=== PATIENT | female | born 1985 | race Hispanic/Latino ===

== ENCOUNTER 2024-10-05 23:17 | Emergency (ER) | payer OTHER ==
[~2024-10-05] VITALS: Ht 154.9 cm; Wt 105.7 kg
[2024-10-05 23:50] LABS: BASOPHILS # (AUTO) 0.01 K/uL (0.00-0.20); BASOPHILS % (AUTO) 0.3 % (0.0-5.0); EOSINOPHILS # (AUTO) 0.14 K/uL (0.00-0.70); EOSINOPHILS % (AUTO) 4.2 % (0.0-8.0); HEMATOCRIT 36.6 % (36-48); IMMATURE GRANULOCYTE ABSOLUTE 0.01 K/uL (0-1); LYMPHOCYTES # (AUTO) 1.1 K/uL (1.0-4.8); LYMPHOCYTES % (AUTO) 32.6 % (21.0-51.0); MEAN CORPUSCULAR HEMOGLOBIN 27.4 pg (27.0-33.0); MEAN CORPUSCULAR HGB CONC 33.9 g/dL (32.0-36.0); MONOCYTES # (AUTO) 0.4 K/uL (0.1-1.0); MONOCYTES % (AUTO) 11.9 % (3.0-13.0); NEUTROPHILS # (AUTO) 1.7 K/uL (1.8-7.7); NEUTROPHILS % (AUTO) 50.7 % (40.0-77.0); PLATELET COUNT (AUTO) 182 K/uL (130-400); RED BLOOD CELL COUNT(AUTO) 4.52 MIL/uL (4.00-5.50); RED CELL DISTRIBUTION WIDTH 11.8 % (11.0-15.5); WHITE BLOOD COUNT (AUTO) 3.4 K/uL (4.8-10.8)
[2024-10-05] MEDS: PANTOPrazole 40 MG/VIAL IVP ONE (23:55)
[2024-10-06 00:06] LABS: CREATININE 0.8 mg/dL (0.5-1.0); INR <= 0.93 (0.85-1.15); POTASSIUM 3.8 mmol/L (3.5-5.1); PROTHROMBIN TIME 10.3 SEC (9.6-11.6)
--- NOTE | 2024-10-06 00:07 | ERN ---
General Chief Complaint: Chest Pain Stated Complaint: CHEST PAIN, ELEVATED HEART RATE, SHORTNESS OF LESLIE Time Seen by MD: 23:23 Source: patient History of Present Illness Initial Comments Patient is a 38-year-old female coming in with epigastric and chest pressure. Patient states that the chest pressure discomfort began yesterday. She states that she has been concerned decided to come in to be evaluated. States it is not pain is more pressure-like. Allergies: Coded Allergies: No Known Drug Allergies (Unverified Allergy, 11/16/13) Past Medical History Past Medical History: Diabetes-Type II, Hypertension Past Surgical History: Appendectomy, Cholecystectomy ROS Dictation CONSTITUTIONAL: No chills, no fever, no weakness, no diaphoresis, no malaise. HEAD/FACE: No signs of trauma. EENT: No eye pain, no blurred vision, no tearing, no double vision, no ear pain, no ear discharge, no nose pain, no nasal congestion, no throat pain, no throat swelling, no mouth pain. RESPIRATORY: No cough, no orthopnea, no SOB, no stridor, no wheezing. CARDIOVASCULAR: chest pain, no edema, no palpitations, no syncope. GASTROINTESTINAL/ABDOMINAL: No abdominal pain, no constipation, no diarrhea, no nausea, no vomiting. GENITOURINARY: No abnormal discharge, no dysuria, no frequent urination, no hematuria. No complaints of pain in the genitals. MUSCULOSKELETAL: No back pain, no gout, no joint pain, no joint swelling, no muscle pain, no muscle stiffness, no neck pain. INTEGUMENTARY: No change in color, no change in hair/nails, no dryness, no lesion, no lumps, no rash. NEUROLOGICAL/PSYCH: No anxiety, not depressed, no emotional problem, no headache, no numbness, no pre-existing deficit, no history of seizures, no tremors, no weakness. HEMATOLOGIC/LYMPHATIC: Not anemic, no history of blood clots, no apparent bleeding, no bruising, glands not swollen. All Systems Negative, Except as Noted. Physical Exam Physical Exam Dictation VITAL SIGNS: Reviewed. GENERAL APPEARANCE: Alert, oriented x3, no acute distress, obese. HEAD AND FACE: Non-traumatic. EYES: PERRL, pink conjunctivas, eyelid no trauma, anterior chamber clear. EARS: Pinnas intact and no signs of trauma or erythema. Ear canals clear and no discharge. TMs no erythema. NOSE: No discharge, no bleeding. OROPHARYNX: Mouth normal, teeth no caries, tongue pink. Pharynx clear, no erythema. Tonsils no exudates, no abscesses noted. Mucous membrane moist. NECK: Supple, non-tender, no thyromegaly, no masses, no JVD, no bruits. BREAST: Deferred. CHEST: No tenderness, no crepitus, no paradoxical movement, no retractions. LUNGS: Clear, well-ventilated, symmetric, no rales, no wheezing, no rhonchi, no stridor, good breath sounds bilaterally. HEART: Regular rate, regular rhythm, no murmur, no gallops. VASCULAR: No peripheral edema. ABDOMEN: Soft, positive bowel sounds, nondistended, no guarding, nontender, no rebound, no masses no hepatomegaly, no splenomegaly, no Wagner's sign, no hernias. RECTAL: Deferred. GENITAL: Deferred. NEUROLOGICAL: Normal speech, gross motor function intact, gross sensory function intact. MUSCULOSKELETAL: Neck nontender, full range of motion, back nontender, full range of motion. EXTREMITIES: Nontender, full range of motion. SKIN: Color pink, dry, no turgor, no rash, no lacerations, no abrasions, no contusions. LYMPHATICS: Deferred. Results Laboratory and Microbiology Lab and Micro Result Laboratory Tests Test 10/05/24 23:29 10/06/24 00:07 White Blood Count 3.4 K/uL (4.8-10.8) L Red Blood Count 4.52 MIL/uL (4.00-5.50) Hemoglobin 12.4 g/dL (12.0-16.0) Hematocrit 36.6 % (36-48) Mean Corpuscular Volume 81.0 fL (79-99) Mean Corpuscular Hemoglobin 27.4 pg (27.0-33.0) Mean Corpuscular Hemoglobin Concent 33.9 g/dL (32.0-36.0) Red Cell Distribution Width 11.8 % (11.0-15.5) Platelet Count 182 K/uL (130-400) Mean Platelet Volume 11.8 fL (7.5-10.5) H Immature Granulocyte % (Auto) 0.3 % (0-1) Neutrophils (%) (Auto) 50.7 % (40.0-77.0) Lymphocytes (%) (Auto) 32.6 % (21.0-51.0) Monocytes (%) (Auto) 11.9 % (3.0-13.0) Eosinophils (%) (Auto) 4.2 % (0.0-8.0) Basophils (%) (Auto) 0.3 % (0.0-5.0) Neutrophils # (Auto) 1.7 K/uL (1.8-7.7) L Lymphocytes # (Auto) 1.1 K/uL (1.0-4.8) Monocytes # (Auto) 0.4 K/uL (0.1-1.0) Eosinophils # (Auto) 0.14 K/uL (0.00-0.70) Basophils # (Auto) 0.01 K/uL (0.00-0.20) Absolute Immature Granulocyte (auto 0.01 K/uL (0-1) Nucleated Red Blood Cells 0.0 % (0.0-0.19) Prothrombin Time 10.3 SEC (9.6-11.6) Prothromb Time International Ratio <= 0.93 (0.85-1.15) Activated Partial Thromboplast Time 28.4 SEC (26.3-35.5) Sodium Level 137 mmol/L (136-145) Potassium Level 3.8 mmol/L (3.5-5.1) Chloride Level 98 mmol/L (101-111) L Carbon Dioxide Level 28 mmol/L (21-32) Blood Urea Nitrogen 11 mg/dL (7-18) Creatinine 0.8 mg/dL (0.5-1.0) Glomerular Filtration Rate Calc 98 mL/min (>90) Random Glucose 341 mg/dL (70-105) H Total Calcium 8.9 mg/dL (8.5-10.1) Magnesium Level 1.50 mg/dL (1.80-2.40) L Total Bilirubin 0.4 mg/dL (0.2-1.0) Aspartate Amino Transf (AST/SGOT) 29 U/L (10-37) Alanine Aminotransferase (ALT/SGPT) 63 U/L (12-78) Alkaline Phosphatase 61 U/L (50-136) Total Creatine Kinase 73 U/L (21-232) Troponin I High Sensitivity < 4 ng/L (4-50) L B-Type Natriuretic Peptide < 5 pg/mL (0-100) Total Protein 7.4 g/dL (6.0-8.3) Albumin 3.5 g/dL (3.5-5.0) Urine Color COLORLESS (YELLOW) Urine Appearance CLEAR (CLEAR) Urine pH 5.0 (5.0-8.0) Urine Specific [place] 1.016 (1.001-1.031) Urine Protein NEGATIVE mg/dL (NEGATIVE) Urine Glucose (UA) >=1000 mg/dL (NEGATIVE) H Urine Ketones NEGATIVE mg/dL (NEGATIVE) Urine Occult Blood SMALL (NEGATIVE) H Urine Nitrate NEGATIVE (NEGATIVE) Urine Bilirubin NEGATIVE mg/dL (NEGATIVE) Urine Urobilinogen 0.2 mg/dL (0.2-1.0) Urine Leukocyte Esterase NEGATIVE Masood/uL Urine RBC 2-5 /HPF (0-1) H Urine WBC 0-1 /HPF (0-1) Urine Squamous Epithelial Cells RARE /HPF (0-2) Urine Bacteria FEW /HPF (None Seen) Urine HCG, Qualitative NEGATIVE (NEGATIVE) Labs Reviewed?: Yes EKG/XRAY/US/CT/MRI EKG Comment 10/05/2024 time 11:15 p.m. Ventricular rate 100 Sinus tachycardia [place] [address] wave elevation or depression MDM MDM: DIFFERENTIAL DIAGNOSIS: GERD, GASTRITIS, DIABETES MELLITUS UNCONTROLLED, SINUSITIS DUE TO MILD NASAL CONGESTION AND FACIAL FULLNESS PATIENT IS A 38-YEAR-OLD FEMALE COMING IN TO BE EVALUATED FOR EPIGASTRIC DISC OMFORT. CARDIAC WORKUP NEGATIVE FOR ACUTE FINDINGS. GLUCOSE ELEVATED I ADVISED PATIENT BETTER MONITORING OF GLUCOSE. DISCHARGED WITH A DIAGNOSIS OF GASTRITIS GERD AND DIABETES MELLITUS UNCONTROLLED. ED Course Orders Procedure Category Date Status Time Cbc With Differential LAB 10/05/24 Complete 23:34 Prothrombin Time With LAB 10/05/24 Complete INR 23:34 B-Type Natriuretic LAB 10/05/24 Complete Peptide 23:34 Chest 1vw RAD 10/05/24 Taken 23:34 12 Lead Ekg Tracing- EKG 10/05/24 Logged Technical 23:34 Magnesium LAB 10/05/24 Complete 23:34 Creatine Kinase, Total LAB 10/05/24 Complete 23:34 Troponin I High LAB 10/05/24 Complete Sensitivity 23:34 Urinalysis Profile LAB 10/05/24 Complete 23:34 Partial LAB 10/05/24 Complete Thromboplastin Time 23:34 Comprehensive LAB 10/05/24 Complete Metabolic Panel 23:34 Pantoprazole 40mg Inj PHA 10/06/24 Complete (Protonix 40mg Inj 00:00 ,Urine Test LAB 10/06/24 Complete 00:07 Lidocaine Hcl 2% PHA 10/06/24 In Process Viscous (Lidocaine Hcl 01:30 Mag/Alum/Simeth 30ml PHA 10/06/24 In Process (Maalox Plus 30ml) 01:30 Current Medications Medications (Trade) Dose Ordered Sig/Arsen Route PRN Reason Start Time Stop Time Status Last Admin Dose Admin Al Hydroxide/Mg Hydroxide (MAALox PLUS 30ML) 30 ml ONCE ONCE PO 10/06/24 01:30 10/06/24 01:31 10/06/24 01:23 Lidocaine HCl (Lidocaine HCl 2% Viscous) 10 ml ONCE ONCE PO 10/06/24 01:30 10/06/24 01:31 10/06/24 01:23 Pantoprazole Sodium (PROTonix 40MG INJ) 40 mg ONCE ONCE IVP 10/06/24 00:00 10/06/24 00:01 DC 10/05/24 23:55 Vital Signs Date Time Temp Pulse Resp B/P (MAP) Pulse Ox O2 Delivery O2 Flow Rate FiO2 10/06/24 01:21 98.8 64 20 122/65 100 Room Air* 0 21 10/05/24 23:31 98.8 66 20 123/69 100 Room Air* 0 21 10/05/24 23:18 100.2 100 24 157/99 100 Room Air 0 DX & DISP Disposition: Discharge Departure Impression: Primary Impression: Diabetes mellitus with hyperglycemia Additional Impressions: Gastritis, Sinusitis Condition: Stable Scripts Fluticasone Propionate (Flonase Nasal [place]) 50 Mcg/Actuation [place] 2 SPRAY NS DAILY, #16 GM 0 Refills Prov: MARGARITA DIAMOND MD 10/06/24 Pantoprazole Sodium (Protonix) 40 Mg Ectab 1 TAB PO DAILY for 30 Days, #30 TAB 0 Refills Prov: MARGARITA DIAMOND MD 10/06/24 Additional Instructions: FOLLOW-UP WITH PRIMARY CARE PROVIDER IN 1 TO 2 DAYS. TAKE MEDICATIONS DIRECTED HERE IN THE EMERGENCY ROOM. OKAY TO CONTINUE HOME MEDICATIONS UNLESS OTHERWISE DISCUSSED DURING YOUR VISIT IN THE EMERGENCY ROOM TODAY. RETURN TO YOUR NEAREST EMERGENCY ROOM IF SYMPTOMS WORSEN OR IF THERE IS NO IMPROVEMENT. CALL 911 IF YOU NEED IMMEDIATE ASSISTANCE. TAKE TYLENOL [id number] NEEDED AND IF NO CONTRAINDICATIONS ARE PRESENT. INCREASE ORAL HYDRATION. A WOUND CULTURE OR URINE CULTURE WAS ORDERED HERE IN THE EMERGENCY ROOM DEPARTMENT PLEASE FOLLOW-UP WITH PRIMARY CARE PROVIDER AND ADVISE THEM TO GET REPEAT PORTS FROM OUR FACILITY. IF YOU HAD ANY GISEL WRAP/SPLINTS THAT WERE APPLIED HERE, PLEASE DO NOT REMOVE THEM UNTIL YOU SEE YOUR PRIMARY CARE OR SPECIALTY. REFERRALS: Referrals: MONI VILLA MD (PCP) Time of Disposition: 01:36 MARGARITA DIAMOND MD Oct 06, 2024 00:07
[2024-10-06 00:08] LABS: PARTIAL THROMBOPLASTIN TIME 28.4 SEC (26.3-35.5)
[2024-10-06 00:12] LABS: ALBUMIN 3.5 g/dL (3.5-5.0); BILIRUBIN,TOTAL 0.4 mg/dL (0.2-1.0); MAGNESIUM 1.5 mg/dL (1.80-2.40); TOTAL PROTEIN, SERUM 7.4 g/dL (6.0-8.3)
[2024-10-06 00:14] LABS: B-TYPE NATRIURETIC PEPTIDE < 5 pg/mL (0-100)
[2024-10-06 00:54] LABS: ADD UA MICROSCOPIC YES; APPEARANCE,URINE CLEAR (CLEAR); BILIRUBIN,URINE NEGATIVE (NEGATIVE); COLOR,URINE COLORLESS (YELLOW); GLUCOSE, URINE (UA) >=1000 mg/dL (NEGATIVE); KETONES,URINE NEGATIVE (NEGATIVE); LEUKOCYTE ESTERASE ,URINE NEGATIVE Leu/uL (NEGATIVE); NITRATE,URINE NEGATIVE (NEGATIVE); OCCULT BLOOD,URINE SMALL (NEGATIVE); PROTEIN,URINE NEGATIVE (NEGATIVE); UROBILINOGEN,URINE 0.2 mg/dL (0.2-1.0)
[2024-10-06 00:55] LABS: BACTERIA,URINE FEW /HPF (None Seen); MUCUS,URINE RARE LPF (None Seen); SQUAMOUS EPITHELIAL CELL,UR RARE /HPF (0-2); WBC,URINE 0-1 /HPF (0-1)
[2024-10-06 01:21] VITALS: BP 122/65; PULSE 64; RESP 20; TEMP 98.7; O2SAT 100
[2024-10-06] MEDS: LIDOCAINE HCL 2% VISCOUS 15 ML UDCUP PO ONE (01:23)
[2024-10-06] MEDS: MAG/ALUM/SIMETH 30 ML UDCUP PO ONE (01:23)
[2024-10-06] MEDS ORDERED: PANT40TA55 PO (01:36)
[2024-10-06] MEDS ORDERED: FLUT16H NS (01:36)
--- NOTE | 2024-10-06 05:55 | EKG ---
[facility] Test Date: 2024-10-05 Test Time: 23:15:42 Pat Name: ANNIE GROVER Department: [facility] Room: Gender: F Teaching Assistant: [id number] : [id number] Requested By: MARGARITA DIAMOND Order Number: [id number] Reading MD: Shagufta Mayo Measurements Intervals [place] Rate: 100 P: 37 OR: 156 QRS: -40 QRSD: 88 T: 1 QT: 346 QTc: 445 Interpretive Statements Sinus tachycardia Left anterior fascicular block Consider anterior infarct No previous ECG available for comparison Electronically Signed On 10-07-2024 08:12:16 ASSOCIATE FINANCIAL REPRESENTATIVE by Shagufta Mayo Please click the below link to view image of tracing.
--- NOTE | 2024-10-06 10:15 | HMCIMG ---
CHEST 1VW HISTORY: Chest pain COMPARISON: None FINDINGS: A frontal projection of the chest was obtained. No acute pulmonary infiltrates is seen. The heart is normal in size. No evidence of aortic calcification is seen. IMPRESSION: 1. No acute pulmonary infiltrate is seen.
== END 2024-10-06 01:51 | disposition home or self-care (01) ==
LOC: EDH 23:17
DX: K29.70 Gastritis, unspecified, without bleeding (principal); E11.65 Type 2 diabetes mellitus with hyperglycemia; J32.9 Chronic sinusitis, unspecified; I10 Essential (primary) hypertension; Z90.49 Acquired absence of other specified parts of digestive tract
CPT/HCPCS: 99285; 96374; 71045; 82550; 83735; 84484; 80053; 83880; 85025; 85610; 85730; 81001; 81025; 36415; 93005; J2470

== ENCOUNTER → 2024-11-20 | Outpatient (CLI) | payer SELFPAY ==
[~2024-11-20] MED LIST: FLUT16H NS; PANT40TA55 PO
[2024-11-20 12:46] LABS: CREATININE 0.7 mg/dL (0.5-1.0); MAGNESIUM 1.6 mg/dL (1.80-2.40); POTASSIUM 4.2 mmol/L (3.5-5.1); THYROID STIMULATING HORMONE 1.12 uIU/mL (0.36-3.74)
== END | disposition home or self-care (01) ==
LOC: LAB 08:19
PROVIDERS: ATTEND Internal Medicine Cardiovascular Disease
DX: E11.59 Type 2 diabetes mellitus with other circulatory complications (principal); R06.00 Dyspnea, unspecified
CPT/HCPCS: 36415; 80048; 82306; 83540; 83735; 83880; 84439; 84443